=== PATIENT | male | born 1955 | race Caucasian/White ===

== ENCOUNTER → 2025-01-12 | Outpatient (CLI) | payer MEDICARE, OTHER ==
[2025-01-12 10:27] LABS: HEMATOCRIT 45.8 % (42.0-52.0); HEMOGLOBIN 16.3 g/dl (13.5-17.5); MEAN CORPUSCULAR HEMOGLOBIN 31.5 pg (27.0-33.0); MEAN CORPUSCULAR HGB CONC 35.6 g/dl (32.0-36.5); MEAN CORPUSCULAR VOLUME 88.4 fl (80.0-96.0); PLATELET COUNT, AUTOMATED 295 10^3/uL (150-450); RED BLOOD COUNT 5.18 10^6/uL (4.30-6.10); WHITE BLOOD COUNT 8.6 10^3/uL (4.0-10.0)
[2025-01-12 10:52] LABS: THYROID STIMULATING HORMONE 1.885 uIU/ML (0.55-4.78)
== END ==
LOC: M EKG 09:42
PROVIDERS: ATTEND Physician Assistant
DX: I48.91 Unspecified atrial fibrillation (principal); R06.02 Shortness of breath

== ENCOUNTER → 2025-01-16 | Outpatient (CLI) | payer OTHER | LOC: M CARPUL 17:32 → EDUNIT# 18:30 | PROVIDERS: ATTEND Physician Assistant | DX: R06.02 Shortness of breath (principal); I48.91 Unspecified atrial fibrillation; R60.0 Localized edema ==